=== PATIENT | female | born 2000 | race Caucasian/White ===

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

== ENCOUNTER 2018-04-16 12:15 | Emergency (ER) | payer MEDICAID ==
[2018-04-16 12:31] VITALS: BP 130/84
--- NOTE | 2018-04-16 13:11 | EDM.PDOC ---
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 States she was doing no particular activity when she suddenly felt stabbing pain in her LLQ. States she thinks she had an ovarian cyst burst, as she has had these in the past. States the pain typically resolves after a day; however, she has noted worsening pain since that time. The pain is bilateral, but worse in the LLQ and with any movement. Rates the pain at a 7/10 at rest, and a 10/10 with movement. She has tried Advil 600 mg as well as some heat and ice with no apparent relief. Reports dysuria, urgency, and frequency, some loose stools, nausea, and decreased appetite. She has had fevers and chills, although she did not check her temperature. No new sexual partners. LMP approximately 03/13/18. Some vaginal discomfort, although no discharge or bleeding. She is sexually active and uses condoms inconsistently. 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 History: Reports: Polycystic Ovaries Musculoskeletal History: Reports: Arthritis, Back Pain, Chronic Neurological History: Reports: Migraines Psychiatric History: Reports: Learning Disability Dermatologic History: Reports: Other (See Below) Other Dermatologic History: Dry skin - Past Surgical History HEENT Surgical History: Reports: Oral Surgery Social & Family History - Tobacco Use Smoking Status *Q: Never Smoker - Caffeine Use Caffeine Use: Reports: Coffee ED ROS GENERAL - Review of Systems Review Of Systems: See Below Constitutional: Reports: Fever, Chills, Decreased Appetite HEENT: Reports: No Symptoms. Denies: Ear Pain, Eye Pain, Sinus Problem Respiratory: Reports: No Symptoms. Denies: Shortness of Breath, Pleuritic Chest Pain, Cough Cardiovascular: Reports: No Symptoms. Denies: Chest Pain, Palpitations Endocrine: Reports: No Symptoms GI/Abdominal: Reports: Abdominal Pain, Diarrhea, Decreased Appetite, Nausea. Denies: Black Stool, Bloody Stool, Constipation, Hematemesis, Hematochezia, Melena, Vomiting : Reports: Dysuria, Irregular Menses, Pain, Urgency. Denies: Discharge, Hematuria Musculoskeletal: Reports: No Symptoms Skin: Reports: No Symptoms Neurological: Reports: Dizziness, Other (Pre-syncope, "woozy") Psychiatric: Reports: No Symptoms Hematologic/Lymphatic: Reports: No Symptoms. Denies: Swollen Glands ED EXAM, GI/ABD - Physical Exam Exam: See Below Text/Narrative:: Francisca is a pleasant female in no acute distress. She is conversant and answers questions appropriately. Exam Limited By: No Limitations General Appearance: Alert, WD/WN, No Apparent Distress Eyes: Bilateral: Normal Appearance, EOMI Ears: Normal External Exam, Normal Canal, Hearing Grossly Normal, Normal TMs Nose: Normal Inspection, Normal Mucosa, No Blood Throat/Mouth: Normal Inspection, Normal Lips, Normal Teeth, Normal Gums, Normal Oropharynx, Normal Voice, No Airway Compromise Head: Atraumatic, Normocephalic Neck: Normal Inspection, Supple, Non-Tender, Full Range of Motion Respiratory/Chest: No Respiratory Distress, Lungs Clear, Normal Breath Sounds, No Accessory Muscle Use, Chest Non-Tender Cardiovascular: Normal Peripheral Pulses, Regular Rate, Rhythm, No Edema, No Gallop, No Murmur, No Rub GI/Abdominal Exam: Normal Bowel Sounds, Soft, No Organomegaly, No Distention, No Mass, Other (Tenderness throughout, but pronounced in the LLQ; some rebound tenderness in the LLQ; negative Tejada sign). No: Guarding, Rigid, Hepatomegaly , Splenomegaly Back Exam: Normal Inspection, CVA Tenderness (R), CVA Tenderness (L), Paraspinal Tenderness, Vertebral Tenderness (With palpation over lumbar spine) Neurological: Alert, Oriented, CN II-XII Intact, Normal Cognition, Normal Gait, Normal Reflexes, No Motor/Sensory Deficits Psychiatric: Normal Affect, Normal Mood Skin Exam: Warm, Dry, Intact, Normal Color, No Rash Lymphatic: No Adenopathy Course - Vital Signs Last Recorded V/S: Last Vital Signs Temp 36.6 C 04/16/18 12:30 Pulse 72 04/16/18 12:30 Resp 14 04/16/18 12:30 BP 130/84 04/16/18 12:30 Pulse Ox 98 04/16/18 12:30 - Orders/Labs/Meds Orders: Active Orders 24 hr Category Date Time Status Pelvis Non OB Ltd [US] Stat Exams 04/16/18 13:01 Ordered Labs: Laboratory Tests 04/16/18 04/16/18 04/16/18 Range/Units 13:01 13:01 13:19 WBC 6.9 (4.5-11.0) K/uL RBC 4.80 (3.30-5.50) M/uL Hgb 13.2 (12.0-15.0) g/dL Hct 40.5 (36.0-48.0) % MCV 84 (80-98) fL MCH 28 (27-31) pg MCHC 33 (32-36) % Plt Count 227 (150-400) K/uL Neut % (Auto) 66 (36-66) % Lymph % (Auto) 23 L (24-44) % [place] % (Auto) 10 H (2-6) % Eos % (Auto) 1 L (2-4) % Baso % (Auto) 1 (0-1) % Sodium 144 (140-148) mmol/L Potassium 3.5 L (3.6-5.2) mmol/L Chloride 105 (100-108) mmol/L Carbon Dioxide 24 (21-32) mmol/L Anion Gap 18.5 H (5.0-14.0) mmol/L BUN 12 (7-18) mg/dL Creatinine 0.7 (0.6-1.0) mg/dL Est Cr Clr Drug Dosing 96.74 mL/min Estimated GFR (MDRD) > 60 (>60) Glucose 84 (74-106) mg/dL Calcium 9.2 (8.5-10.1) mg/dL Urine Color Yellow Urine Appearance Clear Urine pH 7.0 (4.5-8.0) Ur Specific [place] 1.015 (1.008-1.030) Urine Protein Negative (NEGATIVE) mg/dL Urine Glucose (UA) Normal (NEGATIVE) mg/dL Urine Ketones 50 H (NEGATIVE) mg/dL Urine Occult Blood Negative (NEGATIVE) Urine Nitrite Negative (NEGATIVE) Urine Bilirubin Negative (NEGATIVE) Urine Urobilinogen Normal (NORMAL) mg/dL Ur Leukocyte Esterase Negative (NEGATIVE) Urine RBC Not seen (0-5) Urine WBC Not seen (0-5) Ur Epithelial Cells Rare Amorphous Sediment Rare Urine Bacteria Not seen Urine Mucus Not seen Urine HCG, Qual 04/16/18 Range/Units 13:19 WBC (4.5-11.0) K/uL RBC (3.30-5.50) M/uL Hgb (12.0-15.0) g/dL Hct (36.0-48.0) % MCV (80-98) fL MCH (27-31) pg MCHC (32-36) % Plt Count (150-400) K/uL Neut % (Auto) (36-66) % Lymph % (Auto) (24-44) % [place] % (Auto) (2-6) % Eos % (Auto) (2-4) % Baso % (Auto) (0-1) % Sodium (140-148) mmol/L Potassium (3.6-5.2) mmol/L Chloride (100-108) mmol/L Carbon Dioxide (21-32) mmol/L Anion Gap (5.0-14.0) mmol/L BUN (7-18) mg/dL Creatinine (0.6-1.0) mg/dL Est Cr Clr Drug Dosing mL/min Estimated GFR (MDRD) (>60) Glucose (74-106) mg/dL Calcium (8.5-10.1) mg/dL Urine Color Urine Appearance Urine pH (4.5-8.0) Ur Specific [place] (1.008-1.030) Urine Protein (NEGATIVE) mg/dL Urine Glucose (UA) (NEGATIVE) mg/dL Urine Ketones (NEGATIVE) mg/dL Urine Occult Blood (NEGATIVE) Urine Nitrite (NEGATIVE) Urine Bilirubin (NEGATIVE) Urine Urobilinogen (NORMAL) mg/dL Ur Leukocyte Esterase (NEGATIVE) Urine RBC (0-5) Urine WBC (0-5) Ur Epithelial Cells Amorphous Sediment Urine Bacteria Urine Mucus Urine HCG, Qual Negative Meds: Medications Discontinued Medications Generic Name Dose Route Start Last Admin Trade Name Donny PRN Reason Stop Dose Admin Ketorolac Tromethamine 60 mg 04/16/18 14:14 Toradol IM 04/16/18 14:15 ONETIME ONE Departure - Departure Disposition: Home, Self-Care 01 Clinical Impression: Ruptured ovarian cyst - Discharge Information Referrals: Kary Doherty PA [Primary Care Provider] - Forms: ED Department Discharge Care Plan Goals: rest, motrin 600mg q6h for pain , rtc if pain should get alot worse. <Diane Arita - Last Filed: 04/16/18 14:18> Course - Re-Assessments/Exams Free Text/Narrative Re-Assessment/Exam: 04/16/18 14:17 US showed a fair amount of free fluid in the pelvis. Most likely she ruptured a left ovarian cyst. Departure - Departure Time of Disposition: 14:15 Condition: Fair
[2018-04-16] MEDS ORDERED: Ketorolac 60 MG/2 ML SDV IM ONE (14:14)
--- NOTE | 2018-04-16 14:46 | CRLUS ---
Indication: Pelvic pain. Technique: An ultrasound of the pelvis was performed via trans abdominal approach. Comparison: October 09, 2016. Findings: The uterus measures 6.7 x 5.1 x 2.9 cm in size. No masses are identified within the uterus. The endometrial stripe measures 5 mm in thickness. The right ovary measures 3.5 x 1.8 x 2.9 cm in size. Normal color flow is identified to the right ovary. The left ovary measures 3.2 x 2.1 x 2.4 cm in size. Normal color flow is identified to the left ovary. A moderate amount of free fluid is identified within the pelvis. Impression: Moderate amount of free fluid identified within the pelvis. Normal ovaries without evidence of ovarian cyst. Dictated by Brielle Stephenson MD @ Apr 16 2018 2:43PM Signed by Dr. Brielle Stephenson @ Apr 16 2018 2:44PM
== END 2018-04-16 14:29 | disposition home or self-care (01) ==
LOC: JP.ED 12:15
DX: N83.292 Other ovarian cyst, left side (principal); Z88.2 Allergy status to sulfonamides
CPT/HCPCS: 36415; 76857; 80048; 81001; 81025; 85025; 96372; 99284; J1885